=== PATIENT | female | born 1965 | race Caucasian/White ===

== ENCOUNTER 2020-09-18 08:52 | Day surgery (SDC) | payer MEDICAID, SELFPAY ==
--- NOTE | 2020-09-17 13:58 | NUR.NOTE ---
Pre-op call done with patient. Patient stated she was told by surgical associates office to arrive here by 0900 so she had already called [facility] to set it up, and stated it was too late to change her time with [facility]. Patients actual arrival time is 1000. Pt. stated she will be here by 0900, this RN informed NITISH Joy that she will be here at that time, and if we could have a room for her to wait in so we adhere to COVID guidelines. Patient was also informed that since she will be arriving early, she may have a few hours of wait time, and to plan accordingly (i.e. bring an book or ipad, ect) Pt. stated understanding on this matter. Pt. also educated to be NPO after midnight, water until 0600 in the morning. She may take, her Metoprolol, Methadone, buspirone, Symbicort inhaler, and omeprazole with a few sips of water the morning of surgery. Pt. also informed this RN that she is currently snorting Fentanyl in addition to her Methadone. Pt. asked how much and at what frequency, she stated I don't know two bags worth, around $20, I only do it at night when the pain gets bad) This RN informed patient is she could avoid that the night before surgery, that would be best. Pt. stated understanding. Chantale Martin CRNA from anesthesia informed on this matter. Ok'd to proceed. Nursing Note:
--- NOTE | 2020-09-18 07:17 | HPE_ITS ---
Date of service: 09/18/20 Assessment and Plan Assessment and plan (1) Pancreatic cancer: Status: Acute Assessment and plan: 54 year old female with pancreatic cancer who will be starting chemotherapy. I have been asked to place a Mediport. Risks, benefits and complications have been reviewed. Complications include but are not limited to bleeding, infection, pneumothorax, injury to subclavian vein/artery, clot formation, malfunction of the port, wound dehisence. Questions were entertained and answered to their satisfaction and they wished to proceed. No guarantees were given or implied. Proceed with right or left subclavian vein Mediport placement. Qualifiers: Pancreatic malignancy location: head of pancreas Qualified Code(s): C25.0 - Malignant neoplasm of head of pancreas History of Present Illness Narrative: Mrs. Iyer is a 54 year old female diagnosed with borderline resectable pancreatic cancer. Her PMHx is significant for ASCVD with an STEMI in 2010 and LAD stent placement, Cardiomyopathy (LEF 45 to 50%), COPD, opiod dependance on methadone (patient also snorting Fentanyl every night), MHAs, HTN, Hyperlipidemia, Sleep apnea, alpha 1 antitrypsin deficieny on Plavix and aspirin, PTSD and GERD. She was refered by her oncologist for a Mediport placement. Review of Systems Constitutional Constitutional: Denies fever(s), Reports lethargy and Reports weight loss Eyes Eyes: Denies change in vision ENT Ears, Nose, Mouth, and Throat: Denies change in voice and Denies dysphagia Cardiovascular Cardiovascular: Denies chest pain, Denies chest pain at rest, Denies irregular heart rhythm, Denies palpitations and Denies dyspnea Respiratory Respiratory: Denies cough and Denies dyspnea Gastrointestinal Gastrointestinal: Reports as per HPI and Denies dysphagia Genitourinary Genitourinary: Denies urinary frequency and Denies difficulty voiding Musculoskeletal Musculoskeletal: Reports system reviewed and no additional complaints, except as documented Integumentary/Breasts Skin/Breast: Reports system reviewed and no additional complaints, except as documented Neurologic Neurologic: Reports system reviewed and no additional complaints, except as documented Psychiatric Psychiatric: Reports system reviewed and no additional complaints, except as documented Endocrine Endocrine: Denies palpitations [facility] Medical History ADHD [id number] deficiency CAD (coronary artery disease) Degenerative arthritis of lumbar spine Depression GERD (gastroesophageal reflux disease) HCV (hepatitis C virus) Pt. denies this dx Hx of myocardial infarction 2011 LAD stent placement Hx of opioid abuse Ischemic cardiomyopathy Methadone dependence MHA (microangiopathic hemolytic anemia) PTSD (post-traumatic stress disorder) RSOM (right serous otitis media) Sleep apnea central apnea Surgical History H/O breast biopsy H/O heart artery stent History of cholecystectomy Family History Father Heart disease Neuropathy Mother , at age 70 with CO Heart disease Cancer breast cancer Paternal Grandmother Cancer ? bone Social History (Updated 09/02/20 @ 10:26 by Cristela Bartlett RN, RN) Smoking/Tobacco Use Status: Current every day Tobacco Type: cigarettes Smoking risk assessment performed?: Yes Alcohol Intake: never Drug use: Daily Substance use type: other Details: on methadone Details: Pt. states she relapsed 3 months ago and snorted Fentanyl, last use was 09/16/20 2 bags worth, $20 current occupation: Unemployed Do you feel safe at home: Yes Meds Home Medications and Allergies Home Medications Medication Instructions Recorded Confirmed Type albuterol sulfate 90 mcg/actuation 1 inh INHALATION ONCE 09/02/20 09/18/20 History aerosol inhaler albuterol sulfate 90 mcg/actuation 2 inh INHALATION Q4H PRN 09/02/20 09/18/20 History breath activated powder inhaler aspirin 81 mg tablet,delayed 81 mg PO DAILY 09/02/20 09/18/20 History release budesonide-formoterol HFA 80 2 puff INHALATION BID 09/02/20 09/18/20 History mcg-4.5 mcg/actuation aerosol inhaler buspirone 15 mg tablet 15 mg PO TID 09/02/20 09/18/20 History clopidogrel 75 mg tablet 75 mg PO DAILY 09/02/20 09/18/20 History docusate sodium 100 mg capsule 100 mg PO DAILY 09/02/20 09/18/20 History food supplemt, lactose-reduced ml PO 09/02/20 History 0.06 gram-1 kcal/mL oral liquid furosemide 20 mg tablet 20 mg PO DAILY 09/02/20 09/18/20 History ibuprofen 800 mg tablet 800 mg PO TID 09/02/20 09/18/20 History hvqyak-wnamiauu-atuthrv 1 cap PO TID 09/02/20 09/18/20 History 24,000-76,000-120,000 unit capsule,delayed rel lisinopril 2.5 mg tablet 2.5 mg PO DAILY 09/02/20 09/18/20 History methadone 10 mg tablet 60 mg PO DAILY tab 09/02/20 09/18/20 History methadone 10 mg tablet 70 mg PO DAILY 09/02/20 09/18/20 History methylphenidate HCl 20 mg tablet 20 mg PO TID 09/02/20 09/18/20 History metoclopramide HCl 10 mg tablet 10 mg PO QAC 09/02/20 09/17/20 History metoprolol succinate 25 mg capsule 25 mg PO DAILY 09/02/20 09/18/20 History sprinkle, ext. release 24 hr nitroglycerin 0.4 mg sublingual 0.4 mg SUBLINGUAL Q5M PRN 09/02/20 09/18/20 History tablet omeprazole 20 mg capsule,delayed 20 mg PO DAILY 09/02/20 09/18/20 History release oxycodone 5 mg tablet 5 mg PO Q4H PRN 09/02/20 09/18/20 History oxycodone 5 mg tablet 5 mg PO Q8H PRN 09/02/20 09/18/20 History sennosides 8.6 mg tablet 8.6 mg PO DAILY 09/02/20 09/18/20 History simvastatin 10 mg tablet 10 mg PO DAILY 09/02/20 09/18/20 History sumatriptan succinate 50 mg tablet See Rx Instructions PO .COMPLEX 09/02/20 09/18/20 History zolpidem 5 mg tablet 5 mg PO QHS PRN 09/02/20 09/18/20 History Allergies Allergy/AdvReac Type Severity Reaction Status Date / Time Penicillins Allergy Anaphylaxsis, Verified 09/18/20 12:03 hives, slip swelling bird feces Allergy Severe Other (See Uncoded 09/18/20 09:49 Comment) eggs Allergy Intermediate Anaphylaxis Uncoded 09/18/20 09:49 Exam Const General: cooperative Orientation: alert and oriented x3 HENMT Head: normocephalic and atraumatic Resp Effort & Inspection: normal respiratory effort Auscultation: clear to auscultation bilaterally and diminished lung sounds bilaterally in the lower lung haynes Cardio Rate: regular rate Rhythm: regular rhythm GI Palpation: soft and tender periumbilically
--- NOTE | 2020-09-18 09:07 | ROE_ITS ---
Date of service: 09/18/20 Time of Service: 12:52 Operative Note Operative Note DATE OF PROCEDURE: 09/18/20 PRE-OP DIAGNOSIS: Pancreatic Cancer POST-OP DIAGNOSIS: same PROCEDURE: Left subclavian vein Mediport placement SURGEON: Iqra Smith ANESTHESIA: MAC (ASA 3/ Jocy Robbins, SAI ) ESTIMATED BLOOD LOSS: 5 PATHOLOGY: none sent COMPLICATIONS: None Patient was transported to: same day Patient's condition: stable Indications: Ms Iyer is a 54 year old female with a diagnoses of Pancreatic Cancer who was refered by oncology for placement of a port for chemotherapy [facility]. Patient has a history of opiod medication abuse. She is on Methadone and has started using Fentanyl every night again. Urine drug screan was done today and showed cocaine in her system and no opiods. Discussed with patient danger to injecting any illegal drugs through her port. Procedure Description: After informed consent was obtained the patient was taken to the operating room and placed in supine position. The patient was placed under deep sedation and once comfortable the left chest was prepped and draped in a sterile surgical fashion. At this point a timeout was done. The patient's name, date of , procedure to be done, potential complications, DVT prophylaxis, antibiotic given were all reviewed. Fire risk was assessed. Next 1% lidocaine with epi was injected around the clavicle on the left side as well as into the subcutaneous tissue over the 4th rib. The patient was placed in trendelenburg. A power port kit was opened and using the large 18-gauge needle the subclavian vein was found and venous blood was easily aspirated. The syringe was removed and the guidewire was placed without any difficulty into the subclavian vein. The needle was removed. Fluoroscopy was then done which confirmed the placement of the guidewire. A small incision was made in the skin were the guidewire entered. An incision was made with a 15 blade over the 4th rib. Using cautery a pocket was created for the port. Using the tunneler the catheter was tunneled from the newly created pocket to the guidewire. The dilator and sheath were then placed over the guidewire into the subclavian vein. The dilator and guidewire were removed. The catheter was then advanced through the sheath into the subclavian vein. While holding the catheter in place at the skin the sheath was removed. Fluoroscopy was then used again and the catheter was noted to be within the atrium and so it was pulled up until it was just above the atrium. The catheter was then cut to the right length and attached to the port. The port was placed into the pocket and fit snugly. The port was flushed with normal saline, and blood was pulled back without difficulty. The port was then flushed with heparin. The skin was closed using 4-0 Vicryl. The skin was cleaned and dried and skin affix was applied to the port site as well as to the small stab incision underneath the clavicle. The patient was woken up and taken back to same day surgery in stable condition. Sponge, instrument, and needle counts were correct at the end of the case. A stat chest x-ray was ordered and done in same-day surgery. It was pending at the time of this dictation.
[2020-09-18 09:25] VITALS: BP 130/77; PULSE 75; RESP 18; TEMP 37.2; O2SAT 97
[2020-09-18] MEDS: Lactated Ringers 1,000 ML 80 ML IV (10:14)
[2020-09-18 10:53] LABS: *AMPHETAMINES SCREEN URINE Negative (Negative); *BARBITURATES SCREEN URINE Negative (Negative); *BENZODIAZEPINES SCREEN URINE Negative (Negative); Cannabinoids THC Negative (Negative); Cocaine Screen,Urine POSITIVE (Negative); METHADONE URINE SCREEN POSITIVE (Negative); OPIATES URINE SCREEN Negative (Negative)
[2020-09-18 10:54] LABS: Tricyclic Antidepressants Negative (Negative)
--- NOTE | 2020-09-18 11:30 | DI.RAD_ITS ---
EXAM: RF LINE PLACEMENT OR CLINICAL HISTORY: PANCREATIC CANCER TECHNIQUE: 2D and realtime digital imaging was performed. CONTRAST MATERIAL: Refer to procedure report. COMPARISON: No exams were available for comparison FINDINGS: Fluoroscopy was provided for Dr. Smith during the performance of a catheter placement. Please ref er to the procedure report for complete details. Fluoro time: 11.9 seconds IMPRESSION:
[2020-09-18] MEDS: CLINDAMYCIN 600 MG/50 ML BAG 100 MG IVPB (12:17)
[2020-09-18] MEDS: Bupivacaine 0.5% Pres-Free 30 ML VIAL (12:26)
[2020-09-18] MEDS: Normal Saline-STERILE FIELD 0.9% 10 ML SYR (12:27)
[2020-09-18] MEDS: Heparin 500 UNITS/5 ML SYRINGE (12:43)
--- NOTE | 2020-09-18 12:45 | DI.RAD_ITS ---
EXAM: XR PORTABLE CHEST AP POST LINE CLINICAL HISTORY: post Mediport placement TECHNIQUE: 2D digital imaging was performed. COMPARISON: No exams were available for comparison FINDINGS: The patient is rotated. There is poor inspiration. Patient has a MediPort catheter in place. The t ip of the catheter is in good position in the superior vena cava. The heart size and pulmonary vascu lature within normal limits. No pneumothorax or pleural effusion is present. IMPRESSION: Interval MediPort placement. The tip of the catheter is in good position in the superior vena cava. No pneumothorax or pleural effusion is present. DATA REPOSITORY: RADIATION DOSE DELIVERED:
[2020-09-18 13:29] VITALS: BP 119/78; PULSE 45; O2SAT 96
[2020-09-18 13:31] VITALS: BP 119/71; PULSE 42; O2SAT 96
[2020-09-18 13:33] VITALS: BP 125/87; PULSE 49; O2SAT 94
--- NOTE | 2020-09-18 13:43 | W.PM.DSUDISC ---
Discharge Plan Disposition Patient Disposition: HOME Condition: Good Discharge Details Reason For Visit: Mediport placement Attending Provider: Iqra Smith Primary Care Provider: Aramis Rothman Home Meds and New Rx's Prescriptions: Continued Creon 24,000-76,000 -120,000 unit capsule,delayed release(DR/EC) 1 cap PO TID RF: 0 methadone 10 mg tablet 60 mg PO DAILY RF: 0 Boost High Protein 0.06 gram- 1 kcal/mL liquid PO RF: 0 metoclopramide HCl 10 mg tablet 10 mg PO QAC RF: 0 sennosides [Senna Laxative] 8.6 mg tablet 8.6 mg PO DAILY RF: 0 ibuprofen 800 mg tablet 800 mg PO TID RF: 0 docusate sodium [Colace] 100 mg capsule 100 mg PO DAILY RF: 0 zolpidem 5 mg tablet 5 mg PO QHS PRNRF: 0 methylphenidate HCl 20 mg tablet 20 mg PO TID RF: 0 sumatriptan succinate 50 mg tablet See Rx Instructions PO .COMPLEX RF: 0 budesonide-formoterol [Symbicort] 80-4.5 mcg/actuation HFA aerosol inhaler 2 puff inhalation BID RF: 0 albuterol sulfate [ProAir HFA] 90 mcg/actuation HFA aerosol inhaler 1 inh inhalation ONCE RF: 0 clopidogrel 75 mg tablet 75 mg PO DAILY RF: 0 methadone 10 mg tablet 70 mg PO DAILY RF: 0 nitroglycerin 0.4 mg tablet, sublingual 0.4 mg sublingual Q5M PRNRF: 0 metoprolol succinate 25 mg capsule,sprinkle,ER 24hr 25 mg PO DAILY RF: 0 furosemide 20 mg tablet 20 mg PO DAILY RF: 0 aspirin 81 mg tablet,delayed release (DR/EC) 81 mg PO DAILY RF: 0 buspirone 15 mg tablet 15 mg PO TID RF: 0 albuterol sulfate 90 mcg/actuation aerosol powdr breath activated 2 inh inhalation Q4H PRNRF: 0 simvastatin 10 mg tablet 10 mg PO DAILY RF: 0 lisinopril 2.5 mg tablet 2.5 mg PO DAILY RF: 0 omeprazole 20 mg capsule,delayed release(DR/EC) 20 mg PO DAILY RF: 0 Discontinued oxycodone 5 mg tablet 5 mg PO Q4H PRNRF: 0 oxycodone 5 mg tablet 5 mg PO Q8H PRNRF: 0 Discharge Instructions Additional Instructions: Activity at Home after surgery: 1. As tolerated Diet, Nutrition, & wound healin. Avoid alcohol until after you are recovered from your surgery 2. Make sure to eat plenty of lean protein (meat, fish, eggs, cottage cheese, beans) 3. Eat a variety of fruits and vegetables. Eat plenty of high fiber foods to avoid constipation. 4. Drink plenty of liquids to stay hydrated and avoid constipation Pain Medications: 1. Tylenol 650 mg every 6 hours as needed and Ibuprofen 600 mg every 6 hours as needed. You may alternate between the 2 medications every 3 hours as needed 2. If a narcotic has been prescribed take as directed only for breakthrough pain For Constipation: 1. Take Milk of Magnesia or MiraLax as needed for constipation Other: 1. You may shower daily. Do not scrub the incisions 2. Do not soak the incisions for 1 week 3. You may alternate ice and heat as needed for pain and swelling Wound Care: 1. Keep the incisions clean and dry Please call our office if you develop: 1. Fevers >101.5 2. Nausea or Vomiting 3. Worsening pain 4. Redness and thick discharge from the wounds If after hours please call the Hospital at and ask to speak to the on-call surgeon Activity:: Activity as Tolerated Remove Dressings/Wound Care:: Do Not Remove Shower/Bathe:: 24 hours Diet:: As Tolerated Discharge Orders Discharge Orders: Discharge Order (Routine); Ordered 09/18/20 Ordered By: Iqra Smith DS: Diagnosis Discharge Diagnosis (1) Pancreatic cancer: Status: Acute
[2020-09-18 13:46] VITALS: BP 136/84; PULSE 58; RESP 16; TEMP 36.3; O2SAT 100
== END 2020-09-18 14:19 | disposition home or self-care (01) ==
PROVIDERS: PCP Family Medicine; Visit Provider Surgery
PROC: (CPT 36561; principal; 2020-09-18 12:00)
DX: C25.0 Malignant neoplasm of head of pancreas (principal); Z45.2 Encounter for adjustment and management of vascular access device; F11.20 Opioid dependence, uncomplicated; R82.6 Abnormal urine levels of substances chiefly nonmedicinal as to source; G47.33 Obstructive sleep apnea (adult) (pediatric); J44.9 Chronic obstructive pulmonary disease, unspecified; K21.9 Gastro-esophageal reflux disease without esophagitis
CPT/HCPCS: 36561; 77001; 71045; 80307; NC; C1788; J2250; J2704